=== PATIENT | female | born 1960 | race Caucasian/White ===

== ENCOUNTER 2017-09-04 09:41 | Emergency (ER) | payer MEDICAID ==
[~2017-09-04] VITALS: Ht 157.5 cm; Wt 62.1 kg
[~2017-09-04 09:41] MED LIST: AMLO1TAB52; SIMV40TA5
[2017-09-04] MEDS ORDERED: MECLIZINE 25MG TABLET PO ONE (11:15)
[2017-09-04 13:28] LABS: CHLORIDE 100 mEq/L (98-107)
[2017-09-04 13:29] LABS: BASOPHILS % 0.7 % (0.0-2.0); EOSINOPHILS % 0.7 % (0.0-5.0); HEMATOCRIT. 41.6 % (36.0-48.0); HEMOGLOBIN. 14.1 g/dL (12.0-16.0); LYMPHOCYTES % 25.7 % (20.0-50.0); MEAN CORPUSCULAR HEMOGLOBIN 27.4 pg (28.0-32.0); MEAN CORPUSCULAR VOLUME 80.5 fL (81.0-99.0); MEAN PLATELET VOLUME 7.3 fl (7.4-10.4); MONOCYTES % 5.9 % (2.0-8.0); PLATELET 364 x1000/uL (130-400); RED BLOOD CELL COUNT 5.16 mill/uL (4.2-5.4); RED CELL DISTRIBUTION WIDTH 13.6 % (11.6-14.6)
[2017-09-04 14:32] VITALS: BP 131/68
== END 2017-09-04 14:44 | disposition home or self-care (01) ==
LOC: ER 09:56
DX: F43.9 Reaction to severe stress, unspecified (principal); R42 Dizziness and giddiness; R11.0 Nausea; E11.9 Type 2 diabetes mellitus without complications; I10 Essential (primary) hypertension; E78.00 Pure hypercholesterolemia, unspecified; Z90.710 Acquired absence of both cervix and uterus; Z88.8 Allergy status to other drugs, medicaments and biological substances
CPT/HCPCS: 36415; 70450; 80053; 84484; 85025; 93005; 99285; J8597

== ENCOUNTER 2021-01-22 13:18 | Emergency (ER) | payer MEDICAID ==
[~2021-01-22] VITALS: Ht 152.4 cm; Wt 61.0 kg
[~2021-01-22 13:18] MED LIST changes: +AMLO-361; -AMLO1TAB52; +SIMV-46; -SIMV40TA5
[2021-01-22] MEDS ORDERED: LIDOCAINE 5% PATCH TOP STA (15:37)
[2021-01-22] MEDS ORDERED: ACETAMINOPHEN 650MG/20.3ML UDC PO ONE (15:45)
[2021-01-22] MEDS ORDERED: IBUP-2029 MT (16:06)
[2021-01-22 16:13] VITALS: BP 148/80
== END 2021-01-22 16:25 | disposition home or self-care (01) ==
LOC: ER 13:28
DX: S01.01XA Laceration without foreign body of scalp, initial encounter (principal); S16.1XXA Strain of muscle, fascia and tendon at neck level, initial encounter; E11.9 Type 2 diabetes mellitus without complications; E78.00 Pure hypercholesterolemia, unspecified; I10 Essential (primary) hypertension; Z98.890 Other specified postprocedural states; Z85.9 Personal history of malignant neoplasm, unspecified; V58.4XXA Person boarding or alighting a pick-up truck or van injured in noncollision transport accident, initial encounter; Y93.89 Activity, other specified; Y92.89 Other specified places as the place of occurrence of the external cause
CPT/HCPCS: 12001; 99283; A4217; Z7610

== ENCOUNTER 2021-11-01 18:13 | Emergency (ER) | payer MEDICAID ==
[~2021-11-01] VITALS: Ht 157.5 cm; Wt 66.0 kg
[~2021-11-01 18:13] MED LIST changes: +IBUP-2029 MT
[2021-11-01 20:34] LABS: BASOPHILS % 0.8 % (0.0-2.0); EOSINOPHILS % 1.4 % (0.0-5.0); HEMATOCRIT. 39.6 % (36.0-48.0); HEMOGLOBIN. 13.3 g/dL (12.0-16.0); LYMPHOCYTES % 44.2 % (20.0-50.0); MEAN CORPUSCULAR HEMOGLOBIN 27.6 pg (28.0-32.0); MEAN CORPUSCULAR VOLUME 82.2 fL (81.0-99.0); MEAN PLATELET VOLUME 7.2 fl (7.4-10.4); MONOCYTES % 10.6 % (2.0-8.0); PLATELET 320 x1000/uL (130-400); RED BLOOD CELL COUNT 4.82 mill/uL (4.2-5.4); RED CELL DISTRIBUTION WIDTH 13.8 % (11.6-14.6)
[2021-11-01 20:51] LABS: CHLORIDE 105 mEq/L (98-107)
[2021-11-01] MEDS ORDERED: ASPI-1497 MT (22:50)
[2021-11-01 23:05] VITALS: BP 134/78
== END 2021-11-01 23:10 | disposition home or self-care (01) ==
LOC: ER 18:13
DX: G62.9 Polyneuropathy, unspecified (principal); E11.9 Type 2 diabetes mellitus without complications; E78.00 Pure hypercholesterolemia, unspecified; Z98.890 Other specified postprocedural states
CPT/HCPCS: 36415; 71045; 80053; 85025; 93005; 99285

== ENCOUNTER 2024-03-22 23:41 | Emergency (ER) | payer MEDICAID, OTHER ==
[~2024-03-22] VITALS: Ht 162.6 cm; Wt 63.0 kg
[~2024-03-22 23:41] MED LIST changes: +ASPI-1497 MT
[2024-03-23 00:01] VITALS: O2SAT 99
[2024-03-23] MEDS ORDERED: AMOX1TAB16 MT (02:34)
[2024-03-23] MEDS: KETOROLAC 15MG/ML VIAL IM ONE (03:45)
[2024-03-23 03:59] VITALS: BP 142/73; PULSE 72; RESP 18; TEMP 36.83628; O2SAT 99
== END 2024-03-23 04:00 | disposition home or self-care (01) ==
LOC: ER 23:41
DX: J32.9 Chronic sinusitis, unspecified (principal); R51.9 Headache, unspecified; I10 Essential (primary) hypertension; Z79.82 Long term (current) use of aspirin
CPT/HCPCS: 99284; 70450; J1885